=== PATIENT | male | born 1985 | race Caucasian/White ===

== ENCOUNTER 2016-11-16 18:17 | Emergency (ER) | payer SELFPAY ==
--- NOTE | 2016-11-16 18:43 | ED Physician Documentation ---
Sore Throat/Dental Pain - HISTORIAN Historian: patient - HPI Stated Complaint: Dental pain Chief Complaint: Dental Pain Additional Information: has had same problem for 7 years, has been here multiple times, will not go see a dentist. has black teeth stumps, and swollen gingiva, no obvious abscess, face not swollen. Onset: days ago Context: Dental Caries, Possible Infection Associated Symptoms: denies: fever Worsened By: heat, cold Further Comments: no - ROS CONST: no problems CVS/RESP: none GI/: denies: nausea, vomiting MS/SKIN/LYMPH: denies: muscle aches NEURO/PSYCH: none - PAST HX Past History: gum disease Other History: none Allergies/Adverse Reactions: Allergies Allergy/AdvReac Type Severity Reaction Status Date / Time No Known Allergies Allergy Verified 11/16/16 18:32 Home Medications: Ambulatory Orders Medication Instructions Recorded NK [NK] 02/12/16 - SOCIAL HX Smoking History: cigarettes Alcohol Use: occasionally Drug Use: none - FAMILY HX Family History: No - VITAL SIGNS Vital Signs: Vital Signs Temp Pulse Resp BP Pulse Ox 98.7 F 87 15 121/87 97 11/16/16 18:28 11/16/16 18:28 11/16/16 18:28 11/16/16 18:28 11/16/16 18:28 Progress - Results/Orders Results/Orders: I discussed the need for dentistry intervention, and explained that [facility] only works half the time, but he cant afford [employer] Dental Pain Physical Exam - EXAM General Appearance: no acute distress, alert Head/Neck: head nml inspection, no lymphadenopathy. No: mandibular swelling (R) , mandibular swelling (L), maxillary swelling (R), maxillary swelling (L), facial erythema, neck mass/swelling Eyes: eyes nml inspection Mouth/Throat: pharynx nml, no thrush, dental tenderness, gum swelling around teeth, widespread dental decay Ear/Nose: nml inspection Respiratory: no resp. distress Abdomen: soft Extremities: non-tender Skin: warm/dry Neuro/Psych: No: weakness Discharge Clincal Impression: Dental caries, Acute apical periodontitis Referrals: Primary Doctor,No [Primary Care Provider] - 2 Days Home Medications: Ambulatory Orders NK [NK] 02/12/16 Condition: Good Disposition: 01 HOME, SELF-CARE Decision to Admit: NO Date of Decison to Admit: 11/16/16 Decision Time: 18:45
[2016-11-16] MEDS: KETOROLAC TROMETHAMINE 30 MG/1ML VIAL IM ONE (18:52)
[2016-11-16 19:07] VITALS: BP 118/72
== END 2016-11-16 18:50 | disposition home or self-care (01) ==
LOC: ED 18:17
DX: K02.9 Dental caries, unspecified (principal); K04.4 Acute apical periodontitis of pulpal origin
CPT/HCPCS: 99283; J1885

== ENCOUNTER 2017-02-20 13:29 | Emergency (ER) | payer SELFPAY ==
--- NOTE | 2017-02-20 13:33 | ED Physician Documentation ---
General Adult - HISTORIAN Historian: patient - HPI Stated Complaint: sinus congestion and non productive cough Chief Complaint: Cough/ Upper Respiratory Onset: days ago (1) Timing: still present Severity: mild Modifying Factors: he has not tried OTC meds Context: He states he had fever of 100.4 called in sick to work and needs work excus Further Comments: no Last known Well Date: 02/19/17 Last Known Well Time: 16:00 Last known Well Code/Unknown Code: Unknown - ROS CONST: fever. denies: sweating, recent illness, weakness EYES/ENT: none CVS/RESP: cough GI/: none MS/SKIN/LYMPH: none NEURO/PSYCH: denies: headache, dizziness - PAST HX Past History: none Other History: none Surgeries/Procedures: none Immunizations: referred to PCP Allergies/Adverse Reactions: Allergies Allergy/AdvReac Type Severity Reaction Status Date / Time No Known Allergies Allergy Verified 02/20/17 13:44 Home Medications: Ambulatory Orders Medication Instructions Recorded NK [NK] 02/12/16 - SOCIAL HX Smoking History: cigarettes Alcohol Use: none Drug Use: none - FAMILY HX Family History: No - VITAL SIGNS Vital Signs: Vital Signs Temp Pulse Resp BP Pulse Ox 118/72 11/16/16 19:05 - REVIEWED ASSESSMENTS Nursing Assessment Reviewed: Yes Vitals Reviewed: Yes General Adult Physical Exam - PHYSICAL EXAM GENERAL APPEARANCE: no distress EENT: eye inspection normal, ENT inspection normal, pharynx normal NECK: normal inspection RESPIRATORY: no resp distress, chest non-tender, breath sounds normal CVS: reg rate & rhythm, heart sounds normal, no murmur ABDOMEN: soft SKIN: warm/dry NEURO: oriented X3, CN's nml as tested Discharge Clincal Impression: Allergic rhinitis Clincal Impression: (Ruled Out): Allergic rhinitis caused by feathers Referrals: Primary Doctor,No [Primary Care Provider] - 2 Days Additional Instructions: He does not want any meds called in for symptoms states he has that at home Condition: Stable Disposition: 01 HOME, SELF-CARE Decision to Admit: NO Date of Decison to Admit: 02/20/17 Decision Time: 13:54
[2017-02-20 13:43] VITALS: BP 114/80
== END 2017-02-20 13:59 | disposition home or self-care (01) ==
LOC: ED 13:29
DX: J30.9 Allergic rhinitis, unspecified (principal)
CPT/HCPCS: 99283